=== PATIENT | male | born 1975 | race American Indian/Alaskan Native ===

== ENCOUNTER 2017-06-18 05:34 | Inpatient (IN) | payer OTHER ==
[2017-06-18 05:49] LABS: Basophils # (Auto) 0.1 K/mm3 (0.0-0.1); Basophils % (Auto) 0.8 % (0.0-1.8); Eosinophils # (Auto) 0.1 K/mm3 (0.0-0.4); Eosinophils % (Auto) 1.6 % (0.0-4.3); Hematocrit 46.3 % (35.5-45.6); Hemoglobin 15.3 gm/dl (11.8-15.2); Lymphocytes # (Auto) 2.9 K/mm3 (1.2-5.4); Lymphocytes % (Auto) 34.8 % (13.4-35.0); Mean Corpuscular HGB Conc 33 % (32-34); Mean Corpuscular Hemoglobin 28 pg (28-32); Mean Corpuscular Volume 85 fl (84-94); Monocytes # (Auto) 0.5 K/mm3 (0.0-0.8); Monocytes % (Auto) 5.5 % (0.0-7.3); Platelet Count 247 K/mm3 (140-440); Red Blood Count 5.47 M/mm3 (3.65-5.03); Red Cell Distribution Width 13.9 % (13.2-15.2)
--- NOTE | 2017-06-18 05:59 | Cat Scan Report ---
FINAL REPORT EXAM: CT HEAD/BRAIN WO CON HISTORY: neuro deficits < 6hrs or sx present upon awakening TECHNIQUE: Routine axial imaging was obtained of the brain without IV contrast. There are no previous studies available for comparison FINDINGS: The ventricular system is appropriate in size and is symmetric. There is no evidence of acute stroke or hemorrhage. The basal cisterns appear normal. The sinuses reveal polyps in both maxillary sinuses. The mastoid air cells are well pneumatized. The calvarium appears intact IMPRESSION: No evidence of acute stroke or hemorrhage. The CT findings were discussed with Dr. Hurd at 5:53 a.m. on 06/18/2017.
[2017-06-18 06:02] LABS: BUN/Creatinine Ratio 15; Blood Urea Nitrogen 16 mg/dL (9-20); Hemolysis Index 4; INR 0.97 (0.87-1.13)
--- NOTE | 2017-06-18 06:11 | Emergency Department Report ---
HPI - General Chief Complaint: Neuro Symptoms/Deficit Time Seen by Provider: 06/18/17 06:08 - HPI HPI: 41-year-old -[place] male presents to the emergency department by EMS from work where he was found unresponsive on the floor by his turn supervisor. 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 He just complains of some dizziness. He denies any past medical history. He denies any tobacco or illicit drug use or abuse. He did not take anything and was not given anything for her symptoms prior to presentation. Apparently the last known well time was sometime around 3 AM. ED Past Medical Hx - Past Medical History Previous Medical History?: No - Surgical History Past Surgical History?: Yes Additional Surgical History: tonsillectomy - Social History Smoking Status: Never Smoker Substance Use Type: Alcohol - Medications Home Medications: Home Medications Medication Instructions Recorded Confirmed Last Taken Type No Known Home Medications [No 08/13/14 08/13/14 Unknown History Reported Home Medications] ED Review of Systems ROS: Stated complaint: POSSIBLE STROKE Other details as noted in HPI Comment: All other systems reviewed and negative Constitutional: denies: chills, fever Eyes: denies: eye pain, eye discharge, vision change ENT: denies: ear pain, throat pain Respiratory: denies: cough, shortness of breath, wheezing Cardiovascular: syncope. denies: chest pain, palpitations Gastrointestinal: denies: abdominal pain, nausea, diarrhea Genitourinary: denies: urgency, dysuria Musculoskeletal: denies: back pain, joint swelling, arthralgia Skin: denies: rash, lesions Neurological: confusion, other (dizziness) Physical Exam - Physical Exam Vital Signs: Vital Signs 06/18/17 05:35 Temperature 98.8 F Pulse Rate 64 Respiratory 18 Rate Blood Pressure 126/87 O2 Sat by Pulse 99 Oximetry Physical Exam: GENERAL: The patient is well-developed well-nourished. HENT: Normocephalic. Atraumatic. Patient has moist mucous membranes. EYES: Extraocular motions are intact. Pupils equal reactive to light bilaterally. There is fatigable horizontal nystagmus. NECK: Supple. Trachea is midline. CHEST/LUNGS: Clear to auscultation. There is no respiratory distress noted. HEART/CARDIOVASCULAR: Regular. There is no tachycardia. There is no murmur. ABDOMEN: Abdomen is soft, nontender. Patient has normal bowel sounds. There is no abdominal distention. SKIN: Skin is warm and dry. NEURO: The patient is awake, alert, and oriented. The patient is cooperative. The patient has no motor neurologic deficits but he has some subjective decreased left facial and leg sensation when compared to the right. The patient has normal speech. Cranial nerves II through XII grossly intact. No pronator drift. There is some slight dysmetria with finger to nose touch. MUSCULOSKELETAL: There is no tenderness or deformity. There is no limitation range of motion. There is no evidence of acute injury. Muscle strength 5 out of 5 upper and lower extremities bilaterally. ED Course Vital Signs 06/18/17 05:35 Temperature 98.8 F Pulse Rate 64 Respiratory 18 Rate Blood Pressure 126/87 O2 Sat by Pulse 99 Oximetry - Reevaluation(s) Reevaluation #1: 06/18/17 07:48 NIH Stroke Scale/Score (NIHSS) from [employer] on 06/18/2017 All calculations should be rechecked by clinician prior to use RESULT SUMMARY: 1 points NIH Stroke Scale INPUTS: 1A: Level of consciousness > 0 = Alert; keenly responsive 1B: Ask month and age > 0 = Both questions right 1C: 'Blink eyes' & 'squeeze hands' > 0 = Performs both tasks 2: Horizontal extraocular movements > 0 = Normal 3: Visual jones > 0 = No visual loss 4: Facial palsy > 0 = Normal symmetry 5A: Left arm motor drift > 0 = No drift for 10 seconds 5B: Right arm motor drift > 0 = No drift for 10 seconds 6A: Left leg motor drift > 0 = No drift for 5 seconds 6B: Right leg motor drift > 0 = No drift for 5 seconds 7: Limb Ataxia > 0 = No ataxia 8: Sensation > 1 = Mild-moderate loss: less sharp/more dull 9: Language/aphasia > 0 = Normal; no aphasia 10: Dysarthria > 0 = Normal 11: Extinction/inattention > 0 = No abnormality - Consultations Consultation #1: I spoke with the telemedicine neurologist who agrees that the patient does not appear to be a TPA candidate but suggests admission to the hospital for further workup. 06/18/17 07:47 ED Medical Decision Making - Lab Data Result diagrams: 06/18/17 05:30 06/18/17 05:30 - EKG Data -: EKG Interpreted by Me EKG shows normal: sinus rhythm, axis, intervals, QRS complexes, ST-T waves ( nonspecific ST-T waves) Rate: normal - EKG Data When compared to previous EKG there are: previous EKG unavailable Interpretation: nonspecific ST-T wave tessa - Radiology Data Radiology results: report reviewed EXAM: CT HEAD/BRAIN WO CON HISTORY: neuro deficits lt; 6hrs or sx present upon awakening TECHNIQUE: Routine axial imaging was obtained of the brain without IV contrast. There are no previous studies available for comparison FINDINGS: The ventricular system is appropriate in size and is symmetric. There is no evidence of acute stroke or hemorrhage. The basal cisterns appear normal. The sinuses reveal polyps in both maxillary sinuses. The mastoid air cells are well pneumatized. The calvarium appears intact IMPRESSION: No evidence of acute stroke or hemorrhage. The CT findings were discussed with Dr. Hurd at 5:53 a.m. on 06/18/2017. Transcribed By: RB Dictated By: ANGEL MASSEY MD Electronically Authenticated By: ANGEL MASSEY MD Signed Date/Time: 06/18/17 0156 - Medical Decision Making Patient had an unresponsive episode after what appears to be some head trauma. CT of the head does not show any bleed, ischemic changes or any acute process at this time. Labs are mostly unremarkable. He has some decreased sensation subjectively to the left side of his body and some fatigable horizontal nystagmus and mild dysmetria with finger to nose. Otherwise he is awake and alert with cranial nerves intact. Spoke with neurology who does not feel he is a TPA candidate but suggested admission. Patient accepted for admission by the hospitalist, Dr. Rolon. - Differential Diagnosis Seizure, concussion, TIA, CVA Critical Care Time: No Critical care attestation.: If time is entered above; I have spent that time in minutes in the direct care of this critically ill patient, excluding procedure time. ED Disposition Clinical Impression: Unresponsive episode Head injury Qualifiers: Encounter type: initial encounter Qualified Code(s): S09.90XA - Unspecified injury of head, initial encounter Syncope Qualifiers: Syncope type: unspecified Qualified Code(s): R55 - Syncope and collapse Disposition: -09 OP ADMIT IP TO THIS HOSP Is pt being admited?: Yes Condition: Stable Instructions: Syncope (ED) Referrals: FALLON PALOMO MD [Primary Care Provider] - 3-5 Days Time of Disposition: 07:50
[2017-06-18] MEDS ORDERED: ZOFRAN IV PRN (08:29)
[2017-06-18] MEDS ORDERED: MILK OF MAGNESIA PO PRN (08:29)
[2017-06-18] MEDS ORDERED: TYLENOL PO PRN (09:00)
[2017-06-18] MEDS ORDERED: DULCOLAX PR PRN (10:00)
--- NOTE | 2017-06-18 10:30 | History and Physical Report ---
History of Present Illness Date of examination: 06/18/17 Date of admission: 06/18/17 08:29 Medications and Allergies Allergies Allergy/AdvReac Type Severity Reaction Status Date / Time No Known Allergies Allergy Verified 06/18/17 05:37 Home Medications Medication Instructions Recorded Confirmed Last Taken Type No Known Home Medications [No 08/13/14 08/13/14 Unknown History Reported Home Medications] Active Meds: Active Medications Acetaminophen (Tylenol) 650 mg PO Q4H PRN PRN Reason: Pain MILD(1-3)/Fever >100.5/REILLY Bisacodyl (Dulcolax) 10 mg NC QDAY PRN PRN Reason: Constipation unrelieved by MOM Magnesium Hydroxide (Milk Of Magnesia) 30 ml PO Q4H PRN PRN Reason: Constipation Ondansetron HCl (Zofran) 4 mg IV Q8H PRN PRN Reason: N/V unrelieved by Reglan Exam - Constitutional Vitals: Temp Pulse Resp BP Pulse Ox 97.7 F 65 13 115/70 100 06/18/17 08:00 06/18/17 09:30 06/18/17 09:30 06/18/17 09:30 06/18/17 09:16 Results - Labs CBC & Chem 7: 06/18/17 05:30 06/18/17 05:30 Labs: Abnormal lab results 06/18/17 06/18/17 Range/Units 05:30 05:30 RBC 5.47 H (3.65-5.03) M/mm3 Hgb 15.3 H (11.8-15.2) gm/dl Hct 46.3 H (35.5-45.6) % Glucose 101 H (75-100) mg/dL
--- NOTE | 2017-06-18 16:02 | Discharge Summary ---
Providers - Providers Date of Admission: 06/18/17 08:29 Date of discharge: 06/18/17 Attending physician: TYRESE ELLSWORTH Primary care physician: FALLON PALOMO Hospitalization Condition: Stable Core Measure Documentation - Palliative Care Palliative Care/ Comfort Measures: Not Applicable Exam - Constitutional Vitals: Temp Pulse Resp BP Pulse Ox 97.7 F 65 12 138/81 70 L 06/18/17 08:00 06/18/17 09:30 06/18/17 10:25 06/18/17 12:15 06/18/17 12:15 Plan Activity: advance as tolerated Weight Bearing Status: Weight Bear as Tolerated Additional Instructions: Can go back to work on . Follow up with: FALLON PALOMO MD [Primary Care Provider] - 3-5 Days
[2017-06-18 17:21] VITALS: BP 131/73
== END 2017-06-18 16:28 | disposition home or self-care (01) | DRG 312 ==
LOC: ED 05:34 → 3A 08:29
PROVIDERS: ADMIT Internal Medicine; ATTEND Internal Medicine
DX: R55 Syncope and collapse (principal); R41.89 Other symptoms and signs involving cognitive functions and awareness; S09.90XA Unspecified injury of head, initial encounter; X58.XXXA Exposure to other specified factors, initial encounter; Y93.89 Activity, other specified; Y92.89 Other specified places as the place of occurrence of the external cause; Y99.8 Other external cause status
CPT/HCPCS: 36415; 70450; 80048; 84484; 85025; 85610; 85670; 85730; 93005; 93010; 93880

== ENCOUNTER 2020-02-23 19:05 | Emergency (ER) | payer OTHER ==
[2020-02-24] MEDS ORDERED: KETOROLAC 30 MG/1 ML INJ IM ONE (00:10)
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
[2020-02-24 01:01] VITALS: BP 136/63
== END 2020-02-24 02:18 | disposition home or self-care (01) ==
LOC: ED 19:05
DX: S39.012A Strain of muscle, fascia and tendon of lower back, initial encounter (principal); Z90.49 Acquired absence of other specified parts of digestive tract; Z79.899 Other long term (current) drug therapy; V59.50XA Passenger in pick-up truck or van injured in collision with unspecified motor vehicles in traffic accident, initial encounter; Y93.89 Activity, other specified; Y92.410 Unspecified street and highway as the place of occurrence of the external cause; Y99.8 Other external cause status
CPT/HCPCS: 96372; 99281; J1885